=== PATIENT | female | born 1985 | race Two or more races ===

== ENCOUNTER 2025-02-04 14:51 | Outpatient (AMB) | payer OTHER, SELFPAY ==
--- NOTE | 2025-02-04 14:54 | A.OFFVIS_ITS ---
Intake Visit Reasons: PHONOLOGICAL DISORDER HPI Comments Details: The patient is a 39-year-old female presenting for a second opinion on her diagnosis of Functional Neurological Disorder. Her symptoms began after a significant head trauma event in July 2024, which involved involuntary thrashing movements followed by a concussion. She initially received a concussion diagnosis at [facility], but dissatisfaction with this evaluation prompted further assessment at [facility], where she was diagnosed with FND. The diagnosis was later confirmed by another neurologist at [facility]. Her symptom profile includes intermittent gait disturbances requiring assistive devices and speech difficulties such as slurred speech, alongside cognitive complaints like memory problems. She recounts a history of migraine headaches with severe, diffuse throbbing pain accompanied by nausea and vomiting, although these are not related to the onset of her current complaints. Despite a single episode of involuntary thrashing and inconsistent consciousness, no further events of this nature have occurred. Over the last month, she reports significant symptomatic relief and stability in her condition. 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 - Musculoskeletal: Denies joint pain aside from knee buckling episodes. - Psychological: Reports depression and anxiety, sensation of overactive brain. Physical Exam Skin Other: At least 3 ncxf-qo-jtaq spots are noted, 1 on right thigh, another 1 in left thigh, and 1 right upper part of her belly. Neuro Other: Mental Status: Alert and oriented to person, place, and time. Normal attention. Normal spontaneous speech, fluency, and comprehension. No obvious issues with mood and memory. Affect is appropriate. Cranial Nerves: CN II: Visual coronado full to confrontation, visual acuity intact. CN III, IV, : Pupils equal, round, reactive to light and accommodation. Extraocular movements are normal. CN V: Facial sensation is normal. CN VII: Facial movements symmetrical. CN VIII: Hearing intact to bedside conversation is normal. CN IX, X: Palate elevates symmetrically. CN XI: Shoulder shrug and head turn symmetrical. CN XII: Tongue midline without atrophy or fasciculations. Motor: Bulk and tone normal in all extremities. No significant muscle weakness in arms and legs. No drift. Reflexes: Deep tendon reflexes 2+ and symmetric. Plantar response down-going bilaterally. Coordination: Fpfevf-qw-usla and upde-cs-mkqo testing normal. No dysmetria. Gait and Station: No obvious gait abnormality. No ataxia or instability. Extrapyramidal: Full facial expressions and blinking. No rigidity. Movements are appropriate with no tremor or abnormality. 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 There was no known prior trigger, especially no obvious psychological trigger. After that, she developed difficulty speaking and walking sometimes using a cane, walker, or a wheel chair. She did not have any more seizure like episode. She was evaluated at [facility] with EEG and MRIs. She also had video EEG and was told that she suffered from an inconclusive disorder. She was seen in ER at [facility] where she was told that she suffered from a functional neurological disorder. In recent days and weeks, she has been doing better, able to walk, but her speech was still not normal. Her exam did not reveal any focal findings except mild speech dysphasia. She showed me at least three significant au lait spots. 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
--- OUTSIDE RECORDS SUMMARY | 2025-02-04 14:54 | XMS_ITS | Clinical Summary ---
Author Organization [facility] Address [address] [place], [place] [phone] Phone Care Team Providers Care Disease Case Manager Rn Name Role Phone Pcp, Not Required Primary Care Provider Unavaila ble Allergies No known active allergies Social History Tobacco Use Types Packs/Day Years Used Date Smoking Tobacco: Never Smokeless Tobacco: Never Tobacco Cessation:Counseling Given: Not Answered Alcohol Use Standard Drinks/Week Comments Never 0 (1 standard drink = 0.6 oz pur e alcohol) Education Answer Date Recorded Are you interested in more education? Not on izabella e 08/17/2024 Are you concerned about learning? Not on file 08/17/2024 No 08/17/2024 No 08/17/2024 Digital Access Answer Date Recorded No 08/17/2024 No 08/17/2024 Reliable internet access at home? Not on file 08/17/2024 Device with a working camera? Not on file Comments Unknown Sex and Gender Information Value Date Recorded Sex Assigned at Female 08/17/2024 1:16 PM EST Legal Sex Female 12:33 PM EST Gender Identity Female 08/17/2024 1:16 PM EST Sexual Orientation Straight 08/17/2024 1: 16 PM EST Last Filed Vital Signs Vital Sign Reading Time Taken Comments Blood Pressure 112/70 08/17/2024 5:41 PM EST Pulse 73 08/17/2024 5:41 PM EST Temperature 36.3 C (97.3 F) 08/17/2024 5:41 PM EST Respiratory Rate 20 08/17/2024 5:41 PM EST Oxygen Saturation 100% 08/17/2024 5:41 PM EST Inhaled Oxygen Concentration - - Weight - - Height - - Body Mass Index - - Plan of Treatment Health Maintenance Due Date Last Done Comments Adult Td,Tdap Booster 1985 DEPRESSION SCREENING 1995 HEPATITIS C SCREENING 12/14/2001 HIV ONE-TIME SCREENING (18-6 5 YEARS) 12/14/2001 PAP SMEAR 12/14/2004 MAMMOGRAM 2023 COVID-19 VACCINE (2023-2 5 season) 2024 SMOKING STATUS SCREENING (On ce After 26 Yrs) Completed 08/17/2024 HEPATITIS A VACCINES Aged Out No long er eligible based on patient's age to complete this topic HIB VACCINES Aged Out No longer eligi ble based on patient's age to complete this topic MENINGOCOCCAL VACCINES (ACWY) Aged Out No longer eligible based on patient's age to complete this topic MENINGOCOCCAL VACCINES (B) Aged Out N o longer eligible based on patient's age to complete this topic PNEUMOCOCCAL VACCINES (0-49 years) Aged Out No longer eligible based on patient's age to complete this topic Medical Devices Not on file Care Teams Disease Case Manager Rn Relationship Specialty Start Date End Date Pcp, Not Required [address] [place] [id number] PCP - General 08/17/24 Additional Source Comments The information contained in this document represents components of the legal health record. It is not the complete legal health record.[facility]
--- OUTSIDE RECORDS SUMMARY | 2025-02-04 14:54 | XMS_ITS | Clinical Summary ---
Author Organization [address] Address [address] [place] [address] Phone Care Team Providers Care Dermatologist Managing Partner Name Role Phone Alfredo Jordan MD Primary Care Provider [phone] Social History Tobacco Use Types Packs/Day Years Used Date Smoking Tobacco: Never Assessed Comments Unknown Sex and Gender Information Value Date Recorded Sex Assigned at Not on file Legal Sex Female 6:19 PM EST Gender Identity Not on file Sexual Orientation Not on file Last Filed Vital Signs Vital Sign Reading Time Taken Comments Blood Pressure 112/78 10/29/2022 3:49 PM EDT Pulse 66 10/29/2022 3:49 PM EDT Temperature - - Respiratory Rate - - Oxygen Saturation - - Inhaled Oxygen Concentration - - Weight 70.3 kg (155 lb) 10/29/2022 3:49 PM EDT Height 172.7 cm (5' 8 ) 10/29/2022 3:49 PM EDT Body Mass Index 23.57 10/29/2022 3:49 PM EDT Plan of Treatment Health Maintenance Due Date Last Done Comments Breast Cancer Screening 1985 DTaP,Tdap,and Td Vaccines (1 - Tdap) 12/14/2002 Hepatitis B Vaccines (1 of 3 - 19+ 3-dose series) 12/14/2002 Cervical Cancer Screening: P ap Smear 12/14/2004 HIV Screening 07/21/2023 Hepatitis C Screening 07/21/2023 Social Influencers of Health Screening 07/21/2023 COVID-19 Vaccine (1 - 2023-2 5 season) 2024 Depression Screening 06/17/2024 Influenza Vaccine (#1) 2025 Cholesterol Screening (Lipid Panel) 08/20/2029 08/20/2024 HIB Vaccines Aged Out No longer eligi ble based on patient's age to complete this topic HPV Vaccines Aged Out No longer eligi ble based on patient's age to complete this topic Hepatitis A Vaccines Aged Out No long er eligible based on patient's age to complete this topic IPV Vaccines Aged Out No longer eligi ble based on patient's age to complete this topic MMR Vaccines Aged Out No longer eligi ble based on patient's age to complete this topic Meningococcal ACWY Vaccine Aged Out N o longer eligible based on patient's age to complete this topic Meningococcal B Vaccine Aged Out No l onger eligible based on patient's age to complete this topic Pneumococcal Vaccine: Pediat rics (0 to 5 Years) and At-Risk Patients (6 to 49 Years) Aged Out No longer eligi ble based on patient's age to complete this topic RSV Immunization Patients Un anand 20 months Aged Out No longer eligible b ased on patient's age to complete this topic Varicella Vaccines Aged Out No longer eligible based on patient's age to complete this topic Procedures Procedure Name Priority Date/Time Associated Diagnosis Comments LIPID PANEL WITH REFLEX TO DIRECT LDL Routine 08/20/2024 2:22 PM EST Chronic fatigue Routine general medical examination at a health care facility from Last 3 Months or Most Recently Relevant to Health Maintenance Results * Lipid panel with reflex to direct LDL (08/20/2024 2:22 PM EST) Cholesterol 162 0 - 200 mg/dL LAB CHEMISTRY METHOD 08/20/2024 6:35 PM EST [facility] Triglycerides 62 0 - 150 mg/dL LAB CHEMISTRY METHOD 08/20/2024 6:35 PM EST [facility] HDL 60 >=40 mg/dL LAB CHEMISTRY METHOD 08/20/2024 6:35 PM [facility] LDL Calculated 90 0 - 100 mg/dL LAB CHEMISTRY METHOD 08/20/2024 6:35 PM EST [facility] VLDL Cholesterol Chuck 12.4 mg/dL LAB CHEMISTRY METHOD 08/20/2024 6:35 PM EST [facility] Non HDL Chol. (LDL+VLDL) 102 <145 mg/dL LAB CHEMISTRY METHOD 08/20/2024 6:35 PM EST [facility] Chol/HDL Ratio 2.7 0.0 - 4.4 LAB CHEMISTRY METHOD 08/20/2024 6:35 PM EST [facility] Blood Venous blood specimen / Unknown Venipuncture / Unknown 08/20/2024 2:22 PM EST 08/20/2024 2:22 PM EST us Tony MARR LAB BLOOD ORDERABLES Final Res ult [facility] [address] [place] [address], [place] [phone] from Last 3 Months or Most Recently Relevant to Health Maintenance Care Teams Dermatologist Managing Partner Relationship Specialty Start Date End Date Alfredo Jordan MD [address] [id number] PCP - General 10/12/22
== END 2025-02-04 15:33 | disposition home or self-care (01) ==
LOC: HO.HSM 14:52
PROVIDERS: Visit Provider Psychiatry & Neurology Neurology
DX: Z87.898 Personal history of other specified conditions (principal); F44.4 Conversion disorder with motor symptom or deficit
CPT/HCPCS: 99204

== ENCOUNTER 2025-03-25 09:49 | Outpatient (AMB) | payer OTHER, SELFPAY ==
--- NOTE | 2025-03-25 09:56 | MHC.OFFVIS ---
Intake Visit Reasons: Follow up Allergies No Known Allergies Allergy (Verified 03/01/25 07:45) HPI Comments Details: 39 yo woman with h/o migraine w/o aura started having complex set of symptoms in Jul when she had an episode of head and body thrashing with possible LOC. There was no known prior trigger, especially no obvious psychological trigger. After that, she developed difficulty speaking and walking sometimes using a cane, walker, or a wheel chair. She did not have any more seizure like episode. She was evaluated at [facility] with EEG and MRIs. She also had video EEG and was told that she suffered from an inconclusive disorder. She was seen in ER at [facility] where she was told that she suffered from a functional neurological disorder. [facility] Medical History (Updated 03/25/25 @ 10:08 by Faiza Perez MD) Phonological disorder Physical Exam Neuro Other: Mental Status: Alert and oriented to person, place, and time. Normal attention. Normal spontaneous speech, fluency, and comprehension. No obvious issues with mood and memory. Affect is appropriate. Cranial Nerves: CN II: Visual coronado full to confrontation, visual acuity intact. CN III, IV, : Pupils equal, round, reactive to light and accommodation. Extraocular movements are normal. CN V: Facial sensation is normal. CN VII: Facial movements symmetrical. CN VIII: Hearing intact to bedside conversation is normal. CN IX, X: Palate elevates symmetrically. CN XI: Shoulder shrug and head turn symmetrical. CN XII: Tongue midline without atrophy or fasciculations. Motor: Bulk and tone normal in all extremities. No significant muscle weakness in arms and legs. No drift. Reflexes: Deep tendon reflexes 2+ and symmetric. Plantar response down-going bilaterally. Coordination: Tehyeg-iy-zprw and bsby-yg-bzzj testing normal. No dysmetria. Gait and Station: No obvious gait abnormality. No ataxia or instability. Extrapyramidal: Full facial expressions and blinking. No rigidity. Movements are appropriate with no tremor or abnormality. Speech: Normal; no dysarthria or tremor. 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: Comment: EKG at [facility] in Aug 2024: WNL Chest Xray at [facility] in Aug 2024: WNL MRI brain WO at [facility] in Aug 2024: WNL (reported) CTA brain and neck at [facility] in Aug 2024: No sig abn (reported) CT brain WO at [facility] in Jul 2024: WNL (reported) Code(s): F44.4 - Conversion disorder with motor symptom or deficit Category: Medical (3) Migraine without aura, not intractable, without status migrainosus: Code(s): G43.009 - Migraine without aura, not intractable, without status migrainosus Category: Medical Plan Impression: a: Functional neurological disorder including having probably non epileptic spells b: Migraine w/o aura Orders: Orders EEG Awake and Drowsy Today F44.4 - Conversion disorder with motor symptom or deficit, Z87.898 - Personal history of other specified conditions Medications: New sumatriptan succinate 50 mg orally one a day as needed PRN; do not exceed 4 doses per 24 hrs 10 tabs 0RF migraine headache 30 days Coding Level of Care Code Est Pt Level 4 (86332) Diagnoses History of psychogenic nonepileptic seizure Z87.898 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
== END 2025-03-25 10:12 | disposition home or self-care (01) ==
LOC: HO.HSM 09:49
PROVIDERS: Visit Provider Psychiatry & Neurology Neurology
DX: Z87.898 Personal history of other specified conditions (principal); F44.4 Conversion disorder with motor symptom or deficit; G43.009 Migraine without aura, not intractable, without status migrainosus
CPT/HCPCS: 99214

== ENCOUNTER 2025-04-28 13:09 | Outpatient (REF) | payer OTHER, SELFPAY ==
--- OUTSIDE RECORDS SUMMARY | 2024-08-20 08:00 | XMS_ITS ---
Author Organization [facility] [place] Address [address] [facility] [address] [place] [address] Care Team Providers Care Spooler Rubber Strand Name Role Phone Migration, Provider Unavailable Unavailable REASON FOR VISIT HOSPITAL DISCHARGE FOLLOW UP VIIST Encounters Encounter Location Date Provider Diagnosis [address] [place] [phone] 08/20/2024 Provider Migration Plan Of Treatment Next Appt Details Provider Name:Gris Crump, 05/07/2025 04:30:00 PM, [address] [place] [address], Suite [facility], [place], [address], [phone] Progress Notes * CAMILLE AHNB:1985 (39 yo F)Acc No.[id number]:08/20/2024 Progress Notes Patient: CALEB MCNEILL Provider: Sasha cook Migration :1985 A ge:38 Y S ex:Female Date:08/20/2024 Phone: Address:[address] [place], [place] [phone] Subjective: * Chief Complaints: * H OSPITAL DISCHARGE FOLLOW UP VIIST * Ocular Surgical History: Objective: Vision Examination: * Electronic signature of Prov ider Migration on 04/28/2025 at 03:54 PM EST Sign off status: Pending * Provider: Sasha cook Migration Date: 0 08/20/2024 Generated for Phoebe lawrence/Carlitos/eTtoosmitting on: 1 06/28/2024 03:54 PM EST
--- OUTSIDE RECORDS SUMMARY | 2024-08-26 09:30 | XMS_ITS ---
Author Organization [facility] [place] Address [address] [facility] [place] [address] Care Team Providers Care Industrial Hygienist Name Role Phone Migration, Provider Unavailable Unavailable REASON FOR VISIT HOSPITAL DISCHARGE FOLLOW UP VIIST Encounters Encounter Location Date Provider Diagnosis [address] [place] [phone] 08/26/2024 Provider Migration Plan Of Treatment Next Appt Details Provider Name:Gris Crump, 05/07/2025 04:30:00 PM, [address] [place] [address], Suite [facility], [place], [address], [phone] Progress Notes * CAMILLE AHNB:1985 (39 yo F)Acc No.[id number]:08/26/2024 Progress Notes Patient: CALEB MCNEILL Provider: Sasha cook Migration :1985 A ge:38 Y S ex:Female Date:08/26/2024 Phone: Address:[address] [place], [place] [phone] Subjective: * Chief Complaints: * H OSPITAL DISCHARGE FOLLOW UP VIIST * Ocular Surgical History: Objective: Vision Examination: * Electronic signature of Prov ider Migration on 04/28/2025 at 03:54 PM EST Sign off status: Pending * Provider: Sasha cook Migration Date: 0 08/26/2024 Generated for Phoebe lawrence/Carlitos/eTtoosmitting on: 1 06/28/2024 03:54 PM EST
--- OUTSIDE RECORDS SUMMARY | 2024-08-26 09:30 | XMS_ITS ---
Author Organization [facility] [place] Address [address] [facility] [facility] [address] [place] [address] Care Team Providers Care 3D Specialist Name Role Phone Tony Olivarez Unavailable [phone] REASON FOR VISIT HOSPITAL DISCHARGE FOLLOW UP VIIST Encounters Encounter Location Date Provider Diagnosis [address] [place] [address] 08/26/2024 Tony Olivarez Plan Of Treatment Next Appt Details Provider Name:Gris Crump, 05/07/2025 04:30:00 PM, [address] [facility], [address], [place], [address], [phone] Progress Notes * CAMILLE AHNB:1985 (39 yo F)Acc No.[id number]:08/26/2024 Progress Notes Patient: CALEB MCNEILL Provider: Thien MARR :1985 A ge:38 Y S ex:Female Date:08/26/2024 Phone: Address:[address] [place] [address] Subjective: * Chief Complaints: * H OSPITAL DISCHARGE FOLLOW UP VIIST * Ocular Surgical History: Objective: Vision Examination: * Electronic signature of Prashant Olivarez PA-C on 04/28/2025 at 03:54 PM EST Sign off status: Pending * Provider: Thien MARR Date: 0 08/26/2024 Generated for Printi ng/Faxing/eTransmitting on: 1 06/28/2024 03:54 PM EST
--- OUTSIDE RECORDS SUMMARY | 2024-10-20 04:15 | XMS_ITS ---
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) Referral Organization [facility] Referring Provider First Name Tony Referring Provider Last Name Sher Referring Provider Speciality Physician Phone Counselor Referred Provider Specialty Neurology Referral Priority Routine REASON FOR VISIT Follow-up Appt Encounters Encounter Location Date Provider Diagnosis [facility] [address] [facility] [address] [place] [address] 10/20/2024 Tony Olivarez Plan Of Treatment Referrals Referral Date Details 12/09/2024 12/09/2024, neurolog y physical and sleep therapy Next Appt Details Provider Name:Gris Crump, 05/07/2025 04:30:00 PM, [address] [facility], [address], [place], [address], [phone] Consultation Request Notes Referral Date Referring Provider Referred Provider Not es 12/09/2024 Tony Olivarez , neurology ph ysical and sleep therapy Progress Notes * CAMILLE AHNB:1985 (39 yo F)Acc No.[id number]:10/20/2024 Progress Notes Patient: CALEB MCNEILL Provider: Thien MARR :1985 A ge:38 Y S ex:Female Date:10/20/2024 Phone: Address:[address] [place] [address] Subjective: * Chief Complaints: * F ollow-up Appt * Ocular Surgical History: Objective: Vision Examination: Plan: * Treatment: * Electronic signature of Prashant Olivarez PA-C on 04/28/2025 at 03:54 PM EST Sign off status: Pending * Provider: Thien MARR Date: 0 10/20/2024 Generated for Phoebe lawrence/Carlitos/Nicole on: 1 06/28/2024 03:54 PM EST
--- OUTSIDE RECORDS SUMMARY | 2025-01-20 06:30 | XMS_ITS ---
Author Organization [facility] [place] Address [address] [facility] [address] [place] [address] Care Team Providers Care Crossing Supervisor Name Role Phone Gris Crump Unavailable [phone] Allergies No Known Allergies REASON FOR VISIT [...] 01/20/2025 Encounters Encounter Location Date Provider Diagnosis [facility], [address] [place] [address] 01/20/2025 Gris Theron Plan Of Treatment Next Appt Details Provider Name:Gris Crump, 05/07/2025 04:30:00 PM, [address] [place] [address], [place] [address], [place], [address], [phone] History and Physical Notes * HPI (History [...] for FND - Referral to neuropsychology at [facility] - Referral to GRINDING MACHINE OPERATOR PORTABLE for follow-up post-miscarriage - Follow-up appointment in 3 months Progress Notes * CAMILLE AHNB:1985 (39 yo F)Acc No.[id number]:01/20/2025 Progress Notes Patient: CALEB MCNEILL Provider: Tika Crump :1985 A ge:39 Y S ex:Female Date:01/20/2025 Phone: Address:[address] [place], [place] [phone] Subjective: * Chief Complaints: * N EED [...] for FND - Referral to neuropsychology at [facility] - Referral to GRINDING MACHINE OPERATOR PORTABLE for follow-up post-miscarriage - Follow-up appointment in 3 months. * Medical History: Functional neurological disorder Medical History Verified * Surgical History: hernia at the age of 8 anal fissure 2010 breast enlargement 2015 Surgical History verified. * Hospitalization/Major Diagno stic Procedure: concussion 1 week 07/2024 Hospitalization Verified. * Family History: F ather: alive 70 yrs. M other: alive 62 yrs. 1 brother(s) , 1 sister(s) . 1 daughter(s) - healthy. . F amily History Verified.. Health Care Proxy- mother Delores Hurt- [phone]. * Social History: Social History Verified. S [...] * Electronic signature of Brayan Crump on 04/28/2025 at 03:54 PM EST Sign off status: Pending * Provider: Tika Crump Date: 0 01/20/2025 Generated for Phoebe lawrence/Carlitos/Nicole on: 1 06/28/2024 03:54 PM EST
--- OUTSIDE RECORDS SUMMARY | 2025-04-22 06:30 | XMS_ITS ---
Author Organization [facility] [place] Address [address] [place] [address] Care Team Providers Care Wire Stitcher Machine Name Role Phone Gris Crump Unavailable [phone] REASON FOR VISIT 3 MON FU Encounters Encounter Location Date Provider Diagnosis [address] [place] [address] 04/22/2025 Gris Theron Plan Of Treatment Next Appt Details Provider Name:Gris Crump, 05/07/2025 04:30:00 PM, [address] [place] [address], [address], [place], [address], [phone] Progress Notes * CAMILLE AHNB:1985 (39 yo F)Acc No.[id number]:04/22/2025 Progress Notes Patient: CALEB MCNEILL Provider: Tika Crump :1985 A ge:39 Y S ex:Female Date:04/22/2025 Phone: Address:[address] [place], [place] [phone] Subjective: * Chief Complaints: * 3 MON FU * Electronic signature of Brayan Crump on 04/28/2025 at 03:54 PM EST Sign off status: Pending * Provider: Tika Crump Date: 06/22/2024 Generated for Phoebe lawrence/Carlitos/eTmaria eitting on: 06/28/2024 03:54 PM EST
--- OUTSIDE RECORDS SUMMARY | 2025-04-23 04:30 | XMS_ITS ---
Author Organization [facility] [place] Address [address] [address] [place] [address] Care Team Providers Care Manager Travel Name Role Phone SilvinoGris houston Unavailable [phone] REASON FOR VISIT 3 mon fu, Patient has questions on referrals placed in previous appt. Medications Medication SIG (Take, Route, Frequency, Duration) Notes Start Date End Date Status Vitamin Plus Low Iron Active Social History Section Notes: Smoking-Denies ciggs just smoke marijuana Alcohol- Denies Caffeine- some times green tea Vital Signs Blood pressure systolic 109 mm Hg 04/23/20 25 Blood pressure diastolic 75 mm Hg 025 Heart Rate 64 /min 04/23/2025 Respiratory Rate 16 /min 04/23/2025 Height 68 in 04/23/2025 Weight 161.2 lbs 04/23/2025 BMI 24.51 kg/m2 04/23/2025 Oximetry 100 % 04/23/2025 Height-cm 172.72 cm 04/23/2025 Weight-kg 73.12 kg 04/23/2025 Encounters Encounter Location Date Provider Diagnosis [facility] [address] [facility] [address] [place] [address] 04/23/2025 Gris Crump Plan Of Treatment Next Appt Details Provider Name:Gris Crump, 05/07/2025 04:30:00 PM, [address] [facility], [address], [place], [address], [phone] Progress Notes * ESTEBAN AHN:1985 (39 yo F)Acc No.[id number]:04/23/2025 Progress Notes Patient: CALEB MCNEILL Provider: Tika Crump :1985 A ge:39 Y S ex:Female Date:04/23/2025 Phone: Address:[address] [place] [address] Subjective: * Chief Complaints: * 3 mon fuPatient has questions on referrals placed in previous appt. * Medical History: Functional neurological disorder * Surgical History: hernia at the age of 8 anal fissure 2010 breast enlargement 2015 * Hospitalization/Major Diagno stic Procedure: concussion 1 week 07/2024 * Social History: S moking-Denies ciggs just smoke marijuana Alcohol- Denies Caffeine- some times green tea. * Medications: T akingPrenatal Vitamin Plus Low Iron Taking Vitamin Plus Low Iron Objective: * Vitals: B P:109/75mm Hg, HR:64/min, RR:16/min, Oxygen sat %:100%, Ht: 68 in, Wt:161.2lbs, BMI:24.51Index, Wt-k.12 kg, Ht-cm: 172.72 cm, Body Surface Area: 1.87. * Electronic signature of Brayan Crump on 04/28/2025 at 03:54 PM EST Sign off status: Pending * Provider: Tika Crump Date: 06/23/2024 Generated for Phoebe lawrence/Carlitos/Nicole on: 06/28/2024 03:54 PM EST
--- NOTE | 2025-04-28 14:42 | EEG_ITS ---
Reason for Exam: F44.4 conversion disorder History: 39 yo woman with h/o migraine w/o aura started having complex set of symptoms in Jul when she had an episode of head and body thrashing with possible LOC. There was no known prior trigger, especially no obvious psychological trigger. After that, she developed difficulty speaking and walking sometimes using a cane, walker, or a wheel chair. She did not have any more seizure like episode. She was evaluated at [facility] with EEG and MRIs. She also had video EEG and was told that she suffered from an inconclusive disorder. She was seen in ER at [facility] where she was told that she suffered from a functional neurological disorder. In recent days and weeks, she has been doing better, able to walk, but her speech was still not normal. Her exam did not reveal any focal findings except mild speech dysphasia. She showed me at least three significant au lait spots. Medications: sumatriptan Technical Description Photic Stimulation: completed Hyperventilation: performed - good effort Behavioral State: pleasant State of Consciousness: awake and sleep Skull Defect: none Sedation: none Handedness: right Duration: 33 min 41 sec Description: This is a 16 channel EEG with an EKG lead. Patient is reported awake during the tracing. Background EEG rhythm is about 10 hertz 5-50 microvolt posteriorly and lower amplitude fast anteriorly] with no obvious asymmetry or paroxysmal tendency. Photic stimulation does not produce any significant driving. Hyperventilation is is unremarkable. No sharp waves, spikes, asymmetric activity, or paroxysmal activity noted. Cardiac lead does not reveal any significant abnormality. Impression: Unremarkable EEG. MTDD
--- OUTSIDE RECORDS SUMMARY | 2025-04-28 15:54 | XMS_ITS | Clinical Summary ---
Author Organization [facility] Address [address] [place], [place] [phone] Phone Care Team Providers Care Chronic Care Nurse Name Role Phone Pcp, Not Required Primary [...] YEARS) 12/14/2001 PAP SMEAR 12/14/2004 MAMMOGRAM 2023 INFLUENZA VACCINE (#1) 2025 COVID-19 VACCINE (2024-2 6 season) 2025 SMOKING STATUS SCREENING (On ce After 26 Yrs) Completed 08/17/2024 HEPATITIS A VACCINES Aged Out No long er eligible based on patient's age to complete this topic HIB VACCINES Aged Out No longer eligi ble based on patient's age to complete this topic IPV VACCINES Aged Out No longer eligi ble [...] Medical Devices Not on file Care Teams Chronic Care Nurse Relationship Specialty Start Date End Date Pcp, Not Required [address] [place] [address] PCP - General 08/17/24 Additional Source Comments The information contained in this document represents components of the legal health record. It is not the complete legal health record.[facility]
--- OUTSIDE RECORDS SUMMARY | 2025-04-28 15:54 | XMS_ITS | Clinical Summary ---
Author Organization [address] Address [address] [place] [address] Phone Care Team Providers Care Pilot Teacher Name Role Phone Alfredo Jordan MD Primary Care Provider [phone] Social History Tobacco Use Types Packs/Day Years [...] Cervical Cancer Screening: P ap Smear 12/14/2004 HPV Vaccines (1 - 3-dose SCD M series) 12/14/2010 HIV Screening 07/21/2023 Hepatitis C Screening 07/21/2023 Social Influencers of Health Screening 07/21/2023 Depression Screening 06/17/2024 COVID-19 Vaccine (1 - 2024-2 6 season) 2025 Influenza Vaccine (#1) 2025 Cholesterol Screening (Lipid Panel) 08/20/2029 08/20/2024 RSV Immunization Adult Patie nts (1 - 1-dose 75+ series) 12/14/2058 HIB Vaccines Aged Out No longer eligi [...] mg/dL LAB CHEMISTRY METHOD 08/20/2024 6:35 PM [facility] Triglycerides 62 0 - 150 mg/dL LAB CHEMISTRY METHOD 08/20/2024 6:[address] [facility] HDL 60 >=40 mg/dL LAB CHEMISTRY METHOD 08/20/2024 6:35 PM [facility] LDL Calculated 90 0 - 100 mg/dL LAB CHEMISTRY METHOD 08/20/2024 6:[address] [facility] VLDL Cholesterol Chuck 12.4 mg/dL LAB CHEMISTRY METHOD 08/20/2024 6:35 PM [facility] Non HDL Chol. (LDL+VLDL) 102 <145 mg/dL LAB CHEMISTRY METHOD 08/20/2024 6:[address] [facility] Chol/HDL Ratio 2.7 0.0 - 4.4 LAB CHEMISTRY METHOD 08/20/2024 6:[address] [facility] Blood Venous blood specimen / Unknown Venipuncture / Unknown 08/20/2024 2:22 PM EST 08/20/2024 2:22 PM EST us Tony MARR LAB BLOOD ORDERABLES Final Res ult [facility] [address] [place] [address], from Last 3 Months or Most Recently Relevant to Health Maintenance Care Teams Pilot Teacher Relationship Specialty Start Date End Date Alfredo Jordan MD [address] [address] PCP - General 10/12/22
--- OUTSIDE RECORDS SUMMARY | 2025-04-28 15:55 | XMS_ITS | Patient Health Record ---
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) Referral Organization [facility] Referring Provider First Name Tony Referring Provider Last Name Sher Referring Provider Speciality Physician Cooker Cleaner Referred Provider Specialty Neurology Referral Priority Routine Medications Medication SIG (Take, Route, Frequency, Duration) Notes Start Date End Date Status Vitamin Plus Low Iron Active Social History Section Notes: Smoking-Denies ciggs just smoke marijuana Alcohol- Denies Caffeine- some times green tea Smoking-Denies ciggs just smoke marijuana Alcohol- Denies Caffeine- some times green tea Problems Problem Type SNOMED Code ICD Code Onset Dates Problem Status W/U Status Risk Notes Problem Phonological disorder (116053280) 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 Vital Signs Heart Rate 64 /min 04/23/2025 Respiratory Rate 16 /min 04/23/2025 Height-cm 172.72 cm 04/23/2025 Oximetry 100 % 04/23/2025 Blood pressure diastolic 75 mm Hg 04/23/2025 Weight-kg 73.12 kg 04/23/2025 Height 68 in 04/23/2025 Blood pressure systolic 109 mm Hg 04/23/2025 Weight 161.2 lbs 04/23/2025 BMI 24.51 kg/m2 04/23/2025 Encounters Encounter Location Date Provider Diagnosis [facility] [address] [place] [address] 08/20/2024 Provider [facility] [place] [address] [place] [address] 08/26/2024 Provider [facility] [place] [address] [place] [phone] 08/26/2024 Tony Sher [facility] [place] [address] [place] [phone] 10/20/2024 Tony Olivarez [facility] [place] [address] [place] [phone] 01/20/2025 Gris Crump [facility] [place] [address] [address] [place] [phone] 04/23/2025 Gris Theron [facility] [place] [address] [facility] [address] [facility] [address] [place] [phone] 01/26/2025 Gris Crump Plan Of Treatment Next Appt Details Provider Name:Gris Crump, 05/07/2025 04:30:00 PM, [address], [address] [facility], [place], [address], [phone] Insurance Providers Payer Name Payer Address Payer Phone Subscriber Number Group Number Insured Name Patient Relationship to Insured Coverage Start Date Coverage End Date [facility] [address] [place] [phone] [id number] CALEB [employer]N Self - patient is the insured Medical (General) History Medical History History ICD Code functional neurological disorder Surgical History Surgery Date(Month/Year) hernia at the age of 8 anal fissure 2010 breast enlargement 2016 Hospitalization History Reason Date(Month/Year) concussion 1 week 07/2024
== END 2025-04-28 13:10 | disposition home or self-care (01) ==
LOC: HO.NEURO 13:09
PROVIDERS: Visit Provider Psychiatry & Neurology Neurology
DX: F44.4 Conversion disorder with motor symptom or deficit (principal); Z87.898 Personal history of other specified conditions
CPT/HCPCS: 95819

== ENCOUNTER → 2025-04-28 14:42 | Outpatient (BNV) | payer OTHER, SELFPAY | PROVIDERS: Visit Provider Psychiatry & Neurology Neurology | DX: F44.4 Conversion disorder with motor symptom or deficit (principal); Z87.898 Personal history of other specified conditions | CPT/HCPCS: 95819 ==

== ENCOUNTER 2025-05-31 14:08 | Outpatient (AMB) | payer OTHER, SELFPAY ==
--- OUTSIDE RECORDS SUMMARY | 2024-08-20 08:00 | XMS_ITS ---
Author Organization [facility] [place] Address [address] [facility] [address] [place] [address] Care Team Providers Care Rn Hemo Dialysis Name Role Phone Migration, Provider Unavailable Unavailable REASON FOR VISIT HOSPITAL DISCHARGE FOLLOW UP VIIST Encounters Encounter Location Date Provider Diagnosis [facility], [address] [place] [phone] 08/20/2024 Provider Migration Plan Of Treatment No Information Progress Notes * CAMILLE AHNB:1985 (39 yo F)Acc No.[id number]:08/20/2024 Progress Notes Patient: CALEB MCNEILL Provider: Sasha Regalado :1985 A ge:38 Y S ex:Female Date:08/20/2024 Phone: Address:[address] [place], [place] [phone] Subjective: * Chief Complaints: * H OSPITAL DISCHARGE FOLLOW UP VIIST * Ocular Surgical History: Objective: Vision Examination: * Electronic signature of Prov ider Migration on 05/31/2025 at 08:33 PM EST Sign off status: Pending * Provider: Sasha cook Migration Date: 0 08/20/2024 Generated for Phoebe lawrence/Carlitos/eTransmitting on: 1 08/01/2024 08:33 PM EST
--- OUTSIDE RECORDS SUMMARY | 2024-08-26 09:30 | XMS_ITS ---
Author Organization [facility] [place] Address [address] [facility] [address] [place] [address] Care Team Providers Care Machine Fancy Stitcher Name Role Phone Tony Olivarez Unavailable [phone] REASON FOR VISIT HOSPITAL DISCHARGE FOLLOW UP VIIST Encounters Encounter Location Date Provider Diagnosis [address] [place] [address] 08/26/2024 Tony Olivarez Plan Of Treatment No Information Progress Notes * CAMILLE AHNB:1985 (39 yo F)Acc No.[id number]:08/26/2024 Progress Notes Patient: CALEB MCNEILL Provider: Thien MARR :1985 A ge:38 Y S ex:Female Date:08/26/2024 Phone: Address:[address] [place], [place] [phone] Subjective: * Chief Complaints: * H OSPITAL DISCHARGE FOLLOW UP VIIST * Ocular Surgical History: Objective: Vision Examination: * Electronic signature of Prashant Olivarez PA-C on 05/31/2025 at 08:34 PM EST Sign off status: Pending * Provider: Thien MARR Date: 0 08/26/2024 Generated for Phoebe lawrence/Carlitos/Nicole on: 1 08/01/2024 08:34 PM EST
--- OUTSIDE RECORDS SUMMARY | 2024-08-26 09:30 | XMS_ITS ---
Author Organization [facility], [place] Address [address] [facility] [address] [place] [address] Care Team Providers Care Darklight Inspector Name Role Phone Migration, Provider Unavailable Unavailable REASON FOR VISIT HOSPITAL DISCHARGE FOLLOW UP VIIST Encounters Encounter Location Date Provider Diagnosis [facility], [address] [place] [address] 08/26/2024 Provider Migration Plan Of Treatment No Information Progress Notes * CAMILLE AHNB:1985 (39 yo F)Acc No.[id number]:08/26/2024 Progress Notes Patient: CALEB MCNEILL Provider: Sasha Regalado :1985 A ge:38 Y S ex:Female Date:08/26/2024 Phone: Address:[address] [place], [place] [phone] Subjective: * Chief Complaints: * H OSPITAL DISCHARGE FOLLOW UP VIIST * Ocular Surgical History: Objective: Vision Examination: * Electronic signature of Prov ider Migration on 05/31/2025 at 08:34 PM EST Sign off status: Pending * Provider: Sasha cook Migration Date: 0 08/26/2024 Generated for Phoebe lawrence/Carlitos/eTransmitting on: 1 08/01/2024 08:34 PM EST
--- OUTSIDE RECORDS SUMMARY | 2024-10-20 04:15 | XMS_ITS ---
Author Organization [facility] [place] Address [address] 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) Referral Organization [facility] Referring Provider First Name Tony Referring Provider Last Name Sher Referring Provider Speciality Physician Varying Exceptionalities Teacher Referred Provider Specialty Neurology Referral Priority Routine REASON FOR VISIT Follow-up Appt Encounters Encounter Location Date Provider Diagnosis [facility] [address] [address] 10/20/2024 Tony Olivarez Plan Of Treatment Referrals Referral Date Details 12/09/2024 12/09/2024, neurolog y physical and sleep therapy Consultation Request Notes Referral Date Referring Provider Referred Provider Not es 12/09/2024 Tony Olivarez , neurology ph ysical and sleep therapy Progress Notes * CAMILLE AHNB:1985 (39 yo F)Acc No.[id number]:10/20/2024 Progress Notes Patient: CALEB MCNEILL Provider: Thien MARR :1985 A ge:38 Y S ex:Female Date:10/20/2024 Phone: Address:[address] [place], [place] [phone] Subjective: * Chief Complaints: * F ollow-up Appt * Ocular Surgical History: Objective: Vision Examination: Plan: * Treatment: * Electronic signature of Prashant Olivarez PA-C on 05/31/2025 at 08:34 PM EST Sign off status: Pending * Provider: Thien MARR Date: 0 10/20/2024 Generated for Phoebe lawrence/Carlitos/Nicole on: 1 08/01/2024 08:34 PM EST
--- OUTSIDE RECORDS SUMMARY | 2025-01-20 06:30 | XMS_ITS ---
Author Organization [facility] [place] Address [address] [facility] [address] [place] [address] Care Team Providers Care Edge Banding Off Bearer Name Role Phone Theron Gris Unavailable [phone] Allergies No Known Allergies REASON FOR VISIT NEED REFFERAL, needs a ref to neuro physical therapy and speech therapy Medications Medication SIG (Take, Route, Frequency, Duration) Notes Start Date End Date Status Vitamin Plus Low Iron Active Social History Section Notes: Smoking-Denies ciggs just smoke marijuana Alcohol- Denies Caffeine- some times green tea Vital Signs Blood pressure systolic 109 mm Hg 01/21/20 25 Blood pressure diastolic 73 mm Hg 025 Heart Rate 62 /min 01/20/2025 Respiratory Rate 12 /min 01/20/2025 Height 68 in 01/20/2025 Weight 167 lbs 01/20/2025 BMI 25.39 kg/m2 01/20/2025 Oximetry 97 % 01/20/2025 Height-cm 172.72 cm 01/20/2025 Weight-kg 75.75 kg 01/20/2025 Encounters Encounter Location Date Provider Diagnosis [address] [place] [phone] 01/20/2025 Gris Crump Plan Of Treatment No Information History and Physical Notes * HPI (History of Present Illness) Category Sub-Category Detail Notes Category Not es Depression screening PHQ-9 Little inte rest or pleasure in doing things: Not at all Feeling down, depressed, or hopeless: No t at all Trouble falling or staying asleep, or sl eeping too much: Not at all Feeling tired or having little energy: N ot at all Poor appetite or overeating: Not at all Feeling bad about yourself o r that you are a failure, or have let yourself or your family down: Not at all Trouble concentrating on thi ngs, such as reading the newspaper or watching television: Not at all Moving or speaking so slowly that other people could have noticed; or the opposite, being so fidgety or restless that you have been moving around a lot more than usual: Not at all Thoughts that you would be b rico off or of hurting yourself in some way: Not at all Total Score: 0 General Subjective: - 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) with symptoms that include inability to speak or walk, comes and goes - Insurance lapse interrupted speech therapy - 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, 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 - Recent miscarriage, had emergency visit and paperwork submitted - Family history of diabetes (father's mother) - No medications currently - No history of diabetes or anemia Objective: - Pt appears alert and oriented today - Recent normal bloodwork, not anemic - No signs of diabetes or abnormal cholesterol Assessment: - Functional Neurological Disorder (FND) Plan: - Referral to neurophysical therapy for FND - Referral to neuropsychology at [facility] - Referral to DIRECTOR REPORT for follow-up post-miscarriage - Follow-up appointment in 3 months Progress Notes * JIMYCAMILLEB:1985 (39 yo F)Acc No.[id number]:01/20/2025 Progress Notes Patient: CALEB MCNEILL Provider: Tika Crump :1985 A ge:39 Y S ex:Female Date:01/20/2025 Phone: Address:[address] [place] [address] Subjective: * Chief Complaints: * N EED REFFERALNeeds a ref to neuro physical therapy and speech therapy * HPI: D epression screening: PHQ-9 L ittle interest or pleasure in doing things N ot at all, F eeling down, depressed, or hopeless N ot at all, T rouble falling or staying asleep, or sleeping too much N ot at all, F eeling tired or having little energy N ot at all, P oor appetite or overeating N ot at all, F eeling bad about yourself or that you are a failure, or have let yourself or your family down N ot at all, T rouble concentrating on things, such as reading the newspaper or watching television N ot at all, M oving or speaking so slowly that other people could have noticed; or the opposite, being so fidgety or restless that you have been moving around a lot more than usual N ot at all, T houghts that you would be better off or of hurting yourself in some way N ot at all, T otal Score 0 . 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 * Medical History: Functional neurological disorder Medical History Verified * Surgical History: hernia at the age of 8 anal fissure 2010 breast enlargement 2016 Surgical History verified. * Hospitalization/Major Diagno stic Procedure: concussion 1 week 07/2024 Hospitalization Verified. * Family History: F ather: alive 70 yrs. M other: alive 62 yrs. 1 brother(s) , 1 sister(s) . 1 daughter(s) - healthy. . F amily History Verified.. Health Care Proxy- mother Delores Hurt- [phone]. * Social History: Social History Verified. S moking-Denies ciggs just smoke marijuana Alcohol- Denies Caffeine- some times green tea. * Medications: T akingPrenatal Vitamin Plus Low Iron Medication List reviewed and reconciled with the patientTaking Vitamin Plus Low Iron Medication List reviewed and reconciled with the patient * Allergies: N .K.D.A.yesAllergies Verified. Objective: * Vitals: B P:109/73mm Hg, HR:62/min, RR:12/min, Oxygen sat %:97%, Ht: 68 in, Wt:167lbs, BMI:25.39Index, Wt-k.75 kg, Ht-cm: 172.72 cm, Body Surface Area: 1.9. * Electronic signature of Brayan Crump on 05/31/2025 at 08:33 PM EST Sign off status: Pending * Provider: Tika Crump Date: 0 01/20/2025 Generated for Phoebe lawrence/Carlitos/Nicole on: 1 08/01/2024 08:33 PM EST
--- OUTSIDE RECORDS SUMMARY | 2025-04-22 06:30 | XMS_ITS ---
Author Organization [facility] [place] Address [address] [place] [address] Care Team Providers Care Stenciling Machine Tender Name Role Phone Theron Gris Unavailable [phone] REASON FOR VISIT 3 MON FU Encounters Encounter Location Date Provider Diagnosis [address] [address] 04/22/2025 Gris Crump Plan Of Treatment No Information Progress Notes * CAMILLE AHNB:1985 (39 yo F)Acc No.[id number]:04/22/2025 Progress Notes Patient: CALEB MCNEILL Provider: Tika Crump :1985 A ge:39 Y S ex:Female Date:04/22/2025 Phone: Address:[address] [place], [place] [phone] Subjective: * Chief Complaints: * 3 MON FU * Electronic signature of Brayan Crump on 05/31/2025 at 08:34 PM EST Sign off status: Pending * Provider: Tika Crump Date: 06/22/2024 Generated for Phoebe lawrence/Carlitos/eTransmitting on: 08/01/2024 08:34 PM EST
--- OUTSIDE RECORDS SUMMARY | 2025-04-23 04:30 | XMS_ITS ---
Author Organization [facility] [place] Address [address] [address] Care Team Providers Care Carpenter Helper Maintenance Name Role Phone Gris Crump Unavailable [phone] REASON FOR VISIT 3 mon fu, Patient [...] 04/23/2025 Encounters Encounter Location Date Provider Diagnosis [address] [address] 04/23/2025 Gris Crump Plan Of Treatment No Information Progress Notes * CAMILLE AHNB:1985 (39 yo F)Acc No.[id number]:04/23/2025 Progress Notes Patient: CALEB MCNEILL Provider: Tika Crump :1985 A ge:39 Y S ex:Female Date:04/23/2025 Phone: Address:[address] [place] [address] Subjective: * Chief Complaints: * 3 mon [...] signature of Brayan Crump on 05/31/2025 at 08:35 PM EST Sign off status: Pending * Provider: Tika Crump Date: 06/23/2024 Generated for Phoebe lawrence/Carlitos/Bobitting on: 08/01/2024 08:35 PM EST
--- NOTE | 2025-05-31 14:11 | A.OFFVIS_ITS ---
Intake Visit Reasons: Follow up after eeg Allergies No Known Allergies Allergy (Verified 03/01/25 07:45) HPI Comments Details: 39 yo woman with h/o migraine w/o aura started having complex set of symptoms in Jul when she had an episode of head and body thrashing with possible LOC. There was no known prior trigger, especially no obvious psychological trigger. After that, she developed difficulty speaking and walking sometimes using a cane, walker, or a wheel chair. She did not have any more seizure like episode. She was evaluated at [facility] with EEG and MRIs. She also had video EEG and was told that she suffered from an inconclusive disorder. She was seen in ER at [facility] where she was told that she suffered from a functional neurological disorder. She is presenting for a follow-up visit. She reports experiencing occasional headaches and dizziness, and her previous test results were normal. Her symptoms are thought to be related to a psychological disorder, which is reportedly worsened by stress, idleness, and thoughts of traumatic memories. According to her mother, the patient tends to internalize her problems and does not express herself freely. [facility] Medical History (Updated 05/31/25 @ 14:14 by Faiza Perez MD) Phonological disorder Review of Systems Narrative - Neurological: Reports occasional headaches and dizziness. Physical Exam Neuro Other: Mental Status: Alert and oriented to person, place, and time. Normal attention. Normal spontaneous speech, fluency, and comprehension. Cranial Nerves: CN II: Visual coronado full to confrontation, visual acuity intact. CN III, IV, : Pupils equal, round, reactive to light and accommodation. Extraocular movements are normal. CN V: Facial sensation is normal. CN VII: Facial movements symmetrical. CN VIII: Hearing intact to bedside conversation is normal. CN IX, X: Palate elevates symmetrically. CN XI: Shoulder shrug and head turn symmetrical. CN XII: Tongue midline without atrophy or fasciculations. Extrapyramidal: Full facial expressions and blinking. No rigidity. Movements are appropriate with no tremor or abnormality. Speech: Normal; no dysarthria or tremor. 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: Comment: EKG at [facility] in Aug 2024: WNL Chest Xray at [facility] in Aug 2024: WNL MRI brain WO at [facility] in Aug 2024: WNL (reported) CTA brain and neck at [facility] in Aug 2024: No sig abn (reported) CT brain WO at [facility] in Jul 2024: WNL (reported) Code(s): 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 I explained that there is no medication for this and recommended management through physical activity and keeping her mind busy. I agreed that she would benefit from seeing a psychologist or therapist and explained that a referral typically comes from primary care, but that my office would assist in navigating the process. 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
--- OUTSIDE RECORDS SUMMARY | 2025-05-31 20:34 | XMS_ITS | Clinical Summary ---
Author Organization [facility] Address [address] [place], [place] [id number] Phone Care Team Providers Care Tc Operator Name Role Phone Pcp, Not Required Primary [...] Medical Devices Not on file Care Teams Tc Operator Relationship Specialty Start Date End Date Pcp, Not Required PCP - General 08/17/24 Additional Source Comments The information contained in this document represents components of the legal health record. It is not the complete legal health record.[facility]
--- OUTSIDE RECORDS SUMMARY | 2025-05-31 20:35 | XMS_ITS | Clinical Summary ---
Author Organization [address] [facility] Address [address] [place] [address] Phone Care Team Providers Care Coding Clerks Supervisor Name Role Phone Alfredo Jordan MD Primary Care Provider [phone] Encounters Date Type Department Care Team Description 05/05/2025 10:55 AM EST Lab Draw Station - [address] [address] Weakness generalized; Abnormal physical evaluation from Last 3 Months Social History Tobacco Use Types Packs/Day Years [...] 6 season) 2025 Influenza Vaccine (#1) 2025 Hypertension/CHF/CAD Annual BMP Blood Test 08/20/2025 08/20/2024 Cholesterol Screening (Lipid Panel) 08/20/2029 08/20/2024 RSV [...] Procedure Name Priority Date/Time Associated Diagnosis Comments IRON AND TIBC Routine 05/05/2025 11:10 AM EST Weakness generalized Abnormal physical evaluation FERRITIN Routine 05/05/2025 11:10 AM EST Weakness generalized Abnormal physical evaluation COMPLETE BLOOD COUNT Routine 05/05/2025 11:10 AM EST Weakness generalized Abnormal physical evaluation COMPREHENSIVE METABOLIC PANEL Routine 08/20/2024 2:22 PM EST Chronic fatigue Routine general medical examination at a health care facility LIPID PANEL WITH REFLEX TO DIRECT LDL Routine 08/20/2024 2:22 PM EST Chronic fatigue Routine general medical examination at a health care facility from Last 3 Months or Most Recently Relevant to Health Maintenance Results * Iron and TIBC (05/05/2025 11:10 AM EST) Pathologist [facility] Iron 77 40 - 150 mcg/dL 05/05/2025 3:47 PM [facility] TIBC 346 250 - 450 mcg/dL 05/05/2025 3:47 PM [facility] Iron Saturation 22 15 - 50 % 3:47 PM [facility] Blood Venous blood specimen / Unknown Venipuncture / Unknown 05/05/2025 11:10 AM EST 05/05/2025 12:34 PM EST Gris MARR LAB BLOOD ORDERABLES Final Result [facility] [address] [place] [address], * (ABNORMAL) Complete blood count (05/05/2025 11:10 AM EST) [facility] WBC 4.7(L) 4.8 - 10.8 K/mcL LAB HEMETOLOGY METHOD 05/05/2025 12:49 PM [facility] RBC 3.80 3.80 - 4.80 M/mcL LAB HEMETOLOGY METHOD 05/05/2025 12:49 PM [facility] Hemoglobin 11.8 11.5 - 16.0 g/dL LAB HEMETOLOGY METHOD 05/05/2025 12:49 PM [facility] Hematocrit 35.7 35.0 - 47.0 % LAB HEMETOLOGY METHOD 05/05/2025 12:49 PM [facility] MCV 93.0 79.0 - 98.0 FL LAB HEMETOLOGY METHOD 05/05/2025 12:49 PM [facility] MCH 30.7 27.0 - 32.0 pcg LAB HEMETOLOGY METHOD 05/05/2025 12:49 PM EST [facility] MCHC 33.1 32.0 - 37.0 g/dL LAB HEMETOLOGY METHOD 05/05/2025 12:49 PM EST [facility] RDW 12.6 11.0 - 15.0 % LAB HEMETOLOGY METHOD 05/05/2025 12:49 PM EST [facility] Platelets 264 130 - 400 K/mcL LAB HEMETOLOGY METHOD 05/05/2025 12:49 PM EST [facility] MPV 9.7 7.0 - 11.0 FL LAB HEMETOLOGY METHOD 05/05/2025 12:49 PM EST [facility] NRBC 0.0 <1.0 % LAB HEMETOLOGY METHOD 05/05/2025 12:49 PM EST [facility] NRBC Absolute 0.00 <0.10 K/mcL LAB HEMETOLOGY METHOD 05/05/2025 12:49 PM EST [facility] Blood Venous blood specimen / Unknown Venipuncture / Unknown 05/05/2025 11:10 AM EST 05/05/2025 12:36 PM EST us Gris MARR LAB BLOOD ORDERABLES Final Result [facility] [address] [place] [address], * Ferritin (05/05/2025 11:10 AM EST) Ferritin 10 7 - 271 ng/mL 05/05/2025 3:59 PM EST [facility] Blood Venous blood specimen / Unknown Venipuncture / Unknown 05/05/2025 11:10 AM EST 05/05/2025 12:34 PM EST us Gris MARR LAB BLOOD ORDERABLES Final Result [facility] [address] [place] [address], [place] [phone] * Lipid panel with reflex to direct LDL (08/20/2024 2:22 PM EST) Cholesterol 162 0 - 200 mg/dL LAB CHEMISTRY METHOD 08/20/2024 6:35 PM EST [facility] Triglycerides 62 0 - 150 mg/dL LAB CHEMISTRY METHOD 08/20/2024 6:35 PM EST [facility] HDL 60 >=40 mg/dL LAB CHEMISTRY METHOD 08/20/2024 6:35 PM EST [facility] LDL Calculated 90 0 - 100 mg/dL LAB CHEMISTRY METHOD 08/20/2024 6:35 PM [facility] VLDL Cholesterol Chuck 12.4 mg/dL LAB CHEMISTRY METHOD 08/20/2024 6:35 PM EST [facility] Non HDL Chol. (LDL+VLDL) 102 <145 mg/dL LAB CHEMISTRY METHOD 08/20/2024 6:35 PM EST [facility] Chol/HDL Ratio 2.7 0.0 - 4.4 LAB CHEMISTRY METHOD 08/20/2024 6:35 PM EST [facility] Blood Venous blood specimen / Unknown Venipuncture / Unknown 08/20/2024 2:22 PM EST 08/20/2024 2:22 PM EST Tony MARR LAB BLOOD ORDERABLES Final Res ult [facility] [address] [place] [address], [place] [phone] * Comprehensive metabolic panel (08/20/2024 2:22 PM EST) Sodium 137 133 - 145 mmol/L LAB CHEMISTRY METHOD 08/20/2024 6:35 PM EST [facility] Potassium 4.3 3.5 - 5.5 mmol/L LAB CHEMISTRY METHOD 08/20/2024 6:35 PM [facility] Chloride 106 96 - 110 mmol/L LAB CHEMISTRY METHOD 08/20/2024 6:35 PM [facility] CO2 24 21 - 32 mmol/L LAB CHEMISTRY METHOD 08/20/2024 6:35 PM [facility] Anion Gap 7 3 - 11 LAB CHEMISTRY METHOD 08/20/2024 6:35 PM [facility] Glucose 87 70 - 100 mg/dL LAB CHEMISTRY METHOD 08/20/2024 6:35 PM [facility] BUN 19 5 - 25 mg/dL LAB CHEMISTRY METHOD 08/20/2024 6:35 PM [facility] Creatinine 0.80 0.50 - 1.10 mg/dL LAB CHEMISTRY METHOD 08/20/2024 6:35 PM [facility] eGFR 96 >=60 mL/min/1. 73m2 LAB CHEMISTRY METHOD 08/20/2024 6:35 PM [facility] Comment:Calculation based on the Chronic Kidney Disease Epidemiology Collaboration (CKD-EPI) equation refit without adjustment for race. BUN/Creatinine Ratio 23.8 LAB CHEMISTRY METHOD 08/20/2024 6:35 PM [facility] Calcium 9.6 8.5 - 10.5 mg/dL LAB CHEMISTRY METHOD 08/20/2024 6:35 PM [facility] AST (SGOT) 11 10 - 42 unit/L LAB CHEMISTRY METHOD 08/20/2024 6:35 PM [facility] ALT (SGPT) 14 10 - 60 unit/L LAB CHEMISTRY METHOD 08/20/2024 6:35 PM [facility] Alkaline Phosphatase 55 42 - 121 unit/L LAB CHEMISTRY METHOD 08/20/2024 6:35 PM [facility] Total Protein 7.1 6.0 - 8.0 g/dL LAB CHEMISTRY METHOD 08/20/2024 6:35 PM EST [facility] Albumin 4.3 3.2 - 5.0 g/dL LAB CHEMISTRY METHOD 08/20/2024 6:35 PM EST [facility] Total Bilirubin 0.5 0.0 - 1.4 mg/dL LAB CHEMISTRY METHOD 08/20/2024 6:35 PM EST [facility] Blood Venous blood specimen / Unknown Venipuncture / Unknown 08/20/2024 2:22 PM EST 08/20/2024 2:22 PM EST us Tony MARR LAB BLOOD ORDERABLES Final Res ult [facility] [address] [place] [address], from Last 3 Months or Most Recently Relevant to Health Maintenance Insurance [facility] [address] [place] [address] Care Teams Coding Clerks Supervisor Relationship Specialty Start Date End Date Alfredo Jordan MD [address] [facility] [address] [place] [phone] PCP - General 10/12/22
--- OUTSIDE RECORDS SUMMARY | 2025-05-31 20:35 | XMS_ITS | Patient Health Record ---
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) Referral Organization [facility] Referring Provider First Name Tony Referring Provider Last Name Sher Referring Provider Speciality Physician Block Handler Referred Provider Specialty Neurology Referral Priority Routine Medications Medication SIG (Take, Route, Frequency, Duration) Notes Start Date End Date Status Vitamin Plus Low Iron Active Social History Section Notes: Smoking-Denies ciggs just smokes marijuana Alcohol- Denies Caffeine- sometimes green tea Smoking-Denies ciggs just smoke marijuana Alcohol- Denies Caffeine- some times green tea Smoking-Denies ciggs just smoke marijuana Alcohol- Denies Caffeine- some times green tea Problems Problem Type SNOMED Code ICD Code Onset Dates Problem Status W/U Status Risk Notes Problem Phonological disorder (669494645) 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 Vital Signs Heart Rate 64 /min 04/23/2025 Respiratory Rate 16 /min 04/23/2025 Height-cm 172.72 cm 04/23/2025 Oximetry 100 % 04/23/2025 Blood pressure diastolic 75 mm Hg 04/23/2025 Weight-kg 73.12 kg 04/23/2025 Height 68 in 04/23/2025 Blood pressure systolic 109 mm Hg 04/23/2025 Weight 161.2 lbs 04/23/2025 BMI 24.51 kg/m2 04/23/2025 Encounters Encounter Location Date Provider Diagnosis [facility] [address] [facility] [address] [place] [phone] 08/20/2024 Provider [facility] [place] [address] [place] [phone] 08/26/2024 Provider [facility] [place] [address] [place] [phone] 08/26/2024 Tony Olivarez [facility] [place] [address] [place] [phone] 10/20/2024 Tony Olivarez [facility] [place] [address] [place] [phone] 01/20/2025 Gris Crump [facility] [place] [address] [place] [phone] 04/23/2025 Gris Crump [facility] [place] [address] [phone] 05/07/2025 Gris Crump Encounter for other specified special examinations Z01.89 and Fatigue, unspecified type R53.83 [facility] [place] [address] [place] [phone] 01/26/2025 Gris Crump Assessments Encounter Date Diagnosis (ICD Code) Assessment Notes Treatment Notes Treatment Clinical Notes Section Notes 05/07/2025 Encounter for other specified special examinations (ICD-10 - Z01.89) 05/07/2025 Fatigue, unspecified type (ICD-10 - R53.83) Plan Of Treatment No Information Insurance Providers Payer Name Payer Address Payer Phone Subscriber Number Group Number Insured Name Patient Relationship to Insured Coverage Start Date Coverage End Date [facility] [address] [place] [phone] [id number] [employer]N Self - patient is the insured Medical (General) History Medical History History ICD Code functional neurological disorder Surgical History Surgery Date(Month/Year) hernia at the age of 8 anal fissure 2009 breast enlargement 2016 Hospitalization History Reason Date(Month/Year) concussion 1 week 07/2024
== END 2025-05-31 14:23 | disposition home or self-care (01) ==
LOC: HO.HSM 14:08
PROVIDERS: Visit Provider Psychiatry & Neurology Neurology
DX: Z87.898 Personal history of other specified conditions (principal); G43.009 Migraine without aura, not intractable, without status migrainosus; F44.4 Conversion disorder with motor symptom or deficit
CPT/HCPCS: 99213